=== PATIENT | male | born 1980 | race Caucasian/White ===

== ENCOUNTER 2023-03-25 23:22 | Inpatient (IN) ==
[2023-03-26 00:33] LABS: Appearance Urine Turbid (Clear); Blood Urine 3+ (Negative); Color Urine Orange; Epithelial Cell Urine Auto 0-5 /lpf (0-5); Glucose Urine UA Negative (Negative); Ketones Urine Trace (Negative); Leukocyte Esterase Urine 1+ (Negative); Nitrite Urine Positive (Negative); Protein Urine 2+ (Negative); Specific Gravity Urine 1.034 (1.000-1.030); Urobilinogen Urine Negative (Negative)
[2023-03-26 00:35] LABS: Bilirubin Urine 1+ (Negative)
[2023-03-26 01:03] LABS: RBC Urine Automated >30 /hpf (0-4)
[2023-03-26 01:04] LABS: Bacteria Urine Automated 2+ (Negative); Cast Urine Automated 0 /lpf (0-5)
[2023-03-26 01:05] LABS: Calcium Oxalate Crystals Urine Present (None Prsent)
--- NOTE | 2023-03-26 01:31 | CT Scan Report ---
Exam(s): CT ABDOMEN + PELVIS Without Contrast EXAM: CT Abdomen and Pelvis Without Intravenous Contrast CLINICAL HISTORY: Reason for exam: right flank pain. TECHNIQUE: Axial computed tomography images of the abdomen and pelvis without intravenous contrast. Automated exposure control was utilized for the study. A dose lowering technique was utilized adhering to the principles of ALARA. COMPARISON: None FINDINGS: Lung bases: Unremarkable. No mass. No consolidation. ABDOMEN: Liver: Unremarkable. Gallbladder and bile ducts: Contracted gallbladder. No calcified stones. No ductal dilation. Pancreas: Unremarkable. No ductal dilation. Spleen: Unremarkable. No splenomegaly. Adrenals: Unremarkable. No mass. Kidneys and ureters: 4 mm stone in the proximal right ureter. Mild right hydroureteronephrosis. No hydronephrosis or stone on the left. Stomach and bowel: Moderate stool in the colon. No small bowel obstruction. No mucosal thickening. PELVIS: Appendix: Normal appendix. Bladder: Decompressed bladder limits evaluation. No stones. Reproductive: Unremarkable as visualized. ABDOMEN and PELVIS: Intraperitoneal space: Unremarkable. No free air. No significant fluid collection. Bones/joints: No acute fracture. No dislocation. Soft tissues: Tiny fat-containing umbilical hernia. Vasculature: Phleboliths in the pelvis. No abdominal aortic aneurysm. Lymph nodes: Unremarkable. No enlarged lymph nodes. IMPRESSION: 4 mm stone in the proximal right ureter. Mild right hydroureteronephrosis. Electronically signed by: Letty Herrera M.D. 03/26/23 01:30 AM
[2023-03-26] MEDS ORDERED: oxyCODONE/ACETAMINOPHEN 5mg/325mg TAB PO STA (01:48)
[2023-03-26 03:01] LABS: Basophils # (auto) 0.07 K/uL (0.00-0.20); Eosinophils % (auto) 7.2 %; Hematocrit (blood only) 44.8 % (42.0-52.0); Hemoglobin 15.3 g/dl (14.0-18.0); Immature Granulocytes # (auto) 0.02 K/uL (0.01-0.20); Immature Granulocytes % (auto) 0.3 %; Lymphocytes # (auto) 1.24 K/uL (1.20-3.40); Lymphocytes % (auto) 17.9 %; Mean Corpuscular Hemoglobin 27.8 pg (25.0-34.0); Mean Corpuscular Hgb Conc 34.2 g/dL (32.0-36.0); Mean Corpuscular Volume 81.5 fL (80.0-100.0); Mean Platelet Volume 9.4 fL (9.4-12.4); Monocytes # (auto) 0.37 K/uL (0.11-0.59); Monocytes % (auto) 5.4 %; Neutrophils # (auto) 4.71 K/uL (1.40-6.50); Neutrophils % (auto) 68.2 %; Platelet Count 293 K/uL (130-400); RDW Coefficient of Variation 11.6 % (11.5-14.5); White Blood Count 6.91 K/ul (4.8-10.8)
[2023-03-26] MEDS ORDERED: ONDANSETRON INJ 2 MG/ML 2 ML VIAL IV STA (03:01)
[2023-03-26] MEDS ORDERED: CEFEPIME 2,000 MG/20 ML VIAL IV STA (03:04)
[2023-03-26] MEDS: SODIUM CHLORIDE 0.9% 1,000 ML IV SCH ×3 (03:16→19:03)
[2023-03-26 03:19] LABS: Albumin Globulin Ratio 1.6 (0.9-2); Albumin Level 5.2 gm/dl (3.4-5.0); BUN Creatinine Ratio 15.3 (10-20); Bilirubin,Total 0.4 mg/dl (0.2-1.0); Calcium 9.8 mg/dl (8.6-10.3); Creatinine Clr Calc Pharmacy 83.2 ml/min; Est GFR (African American) 95.1 ml/min; Globulin 3.2 gm/dl (2.5-4.0); Potassium 3.7 mmol/L (3.5-5.1); Total Protein 8.4 gm/dl (6.0-8.3)
[2023-03-26] MEDS ORDERED: TAMSULOSIN HCL 0.4 MG CAP PO ONE (04:22)
[2023-03-26] MEDS ORDERED: MoRPHine SULFATE 4 MG/ML 1 ML CARP\\VIAL IV STA (04:33)
[2023-03-26] MEDS ORDERED: D5W AND NSS 1,000 ML IV ONE (04:34)
--- NOTE | 2023-03-26 04:47 | Emergency Department Note ---
Impression & Plan Hydronephrosis with renal and ureteral calculus obstruction, Acute UTI Admit to the [facility] ED Provider Note NAME: WERO WELLS AGE: 42 SEX: Male INFORMANT: Patient ED PROVIDER(S): Daly Harris DO CHIEF COMPLAINT: Right flank pain PLAN: Disposition: Admit to the [facility] MEDICAL DECISION MAKING: This is a 42-year-old male patient presents emergency department with worsening right flank pain, nausea and chills. Patient has a proximal right ureteral stone with evidence of urinary tract infection. He complains of moderate right flank pain, nausea and chills. He has history of previous stones. He is afebrile with no leukocytosis. Blood cultures were obtained. He was treated with IV cefepime. Patient was a very difficult IV stick as he has a history of remote IV drug abuse. He originally received oral Percocet before an IV lock to be established. He was then given IV normal saline solution and IV Zofran to control his nausea. Care/management discussed with: adoption manager and the [facility] Triage Nursing notes: Reviewed and agree with them. Vital Signs: reviewed and unremarkable Additional History obtained from: Patient and his significant other who is at the bedside Chronic Medical/Social Conditions affecting care: Previous IV drug user. This made it quite difficult to obtain IV access Differential Diagnosis: Pyelonephritis, obstructive uropathy, ureteral calculi, infected kidney stone Diagnostics, independently interpreted by me: Cardiac Monitoring: Normal sinus rhythm at a rate of 76 Imaging studies: CT scan of the abdomen/pelvis: As per stat rad HPI: 42 year old Male arrives for evaluation of right flank pain. Patient describes having intermittent episodes of right flank pain over the past couple of days but became significantly nauseated and had chills and sweats. PAST MEDICAL HISTORY: Previous kidney stones, previous testicular torsion SOCIAL HISTORY: Patient lives with his significant other and no longer abuses drugs. HOME MEDICATIONS: See list ALLERGIES: Ibuprofen VITALS: See Below PHYSICAL EXAMINATION: HEENT: Head - normocephalic and atraumatic. Pupils are equal, round, and reactive to light. Extraocular eye muscles are intact, and sclera are anicteric. Nose - moist nasal mucosa without discharge. Mouth - moist buccal mucosa. Oropharynx is nonerythematous and there is no tonsillar exudate or edema noted. Neck: Supple; no cervical lymphadenopathy Heart: Regular rate and rhythm. There is a normal S1 and S2 with no murmurs, clicks, or gallops appreciated. Lungs: Clear to auscultation bilaterally with no wheezes, rales, or rhonchi. Abdomen: Soft, mild right mid abdomen and right flank pain with palpation. The rest of the abdomen is nondistended, with good bowel sounds. There are no palpable pulsatile masses or hepatosplenomegaly. There is no guarding, rigidity, or rebound noted. Extremities: No evidence of cyanosis, clubbing, or edema. There are easily palpable peripheral pulses. Skin: warm and dry with good turgor and no rashes. Emergency department treatment: P.o. Percocet; IV normal saline bolus; IV Zofran; IV cefepime Patient was evaluated in room B3. A complete history and physical was performed. Nursing staff had difficulty obtaining IV access on this patient. He went for CT scan of the abdomen/pelvis. A urine specimen was obtained. He was given oral Percocet for his pain. IV team attempted IV access and were unsuccessful. Finally, emergency department nursing staff were able to obtain IV access and laboratory studies. I reviewed results of the labs and CT scan with the patient and his significant other. He was given dose of IV cefepime and a dose of IV Zofran. I discussed the case with the [facility] Hospitalist and they will evaluate for further inpatient care. Past Med/Surg History Social History Smoking Status: Current every day smoker Tobacco Type: E-cigarettes / Vaping Preferred Language: Tajik Feels Safe at Home: Yes Allergies Allergies Allergy/AdvReac Type Severity Reaction Status Date / Time ibuprofen Allergy Intermediate CONGESTION, Verified 03/26/23 01:04 EARS "PLUG" UP Home Meds Home Medications Medication Instructions Recorded Confirmed cetirizine 5 mg-pseudoephedrine ER 1 tab PO DAILY 03/26/23 03/26/23 120 mg tablet,extended release,12hr (Zyrtec-D) Results & Data (ED) Vital Signs Vital Signs - 24 hr 03/25/23 23:30 03/26/23 00:39 03/26/23 01:56 Temperature 36.4 C L Temperature Source Oral Pulse Rate 73 Pulse Rate [Finger] 77 75 Respiratory Rate 18 17 17 Respiratory Effort / Characteristics Non-Labored Spontaneous Respiratory Depth Normal Respiratory Pattern Regular Blood Pressure 149/95 H Blood Pressure [Right Arm] 131/84 Blood Pressure Mean 113 Blood Pressure Mean [Right Arm] 99 Blood Pressure Position Sitting Pulse Oximetry 100 98 96 Oxygen Delivery Method Room Air Sepsis Recent Fever Within 48 Hours No Sepsis New/Unexplained Change in Mental Status N/A Sepsis Action Taken by Nursing No Action Required 03/26/23 03:20 03/26/23 05:29 Temperature Temperature Source Pulse Rate Pulse Rate [Finger] 75 73 Respiratory Rate 14 18 Respiratory Effort / Characteristics Respiratory Depth Respiratory Pattern Blood Pressure Blood Pressure [Right Arm] 114/75 126/83 Blood Pressure Mean Blood Pressure Mean [Right Arm] 88 97 Blood Pressure Position Pulse Oximetry 98 98 Oxygen Delivery Method Sepsis Recent Fever Within 48 Hours Sepsis New/Unexplained Change in Mental Status Sepsis Action Taken by Nursing Laboratory Data 03/26/23 02:40 03/26/23 02:40 Lab Results 03/26/23 03/26/23 Range/Units 00:18 02:40 WBC 6.91 (4.8-10.8) K/ul RBC 5.50 (4.70-6.10) M/uL Hgb 15.3 (14.0-18.0) g/dl Hct 44.8 (42.0-52.0) % MCV 81.5 (80.0-100.0) fL MCH 27.8 (25.0-34.0) pg MCHC 34.2 (32.0-36.0) g/dL RDW Std Deviation 34.0 L (36.4-46.3) fL RDW Coeff of Christiano 11.6 (11.5-14.5) % Plt Count 293 (130-400) K/uL MPV 9.4 (9.4-12.4) fL Immature Gran % (Auto) 0.3 % Neut % (Auto) 68.2 % Lymph % (Auto) 17.9 % [place] % (Auto) 5.4 % Eos % (Auto) 7.2 % Baso % (Auto) 1.0 % Neut # (Auto) 4.71 (1.40-6.50) K/uL Lymph # (Auto) 1.24 (1.20-3.40) K/uL [place] # (Auto) 0.37 (0.11-0.59) K/uL Eos # (Auto) 0.50 (0.00-0.50) K/uL Baso # (Auto) 0.07 (0.00-0.20) K/uL Immature Gran # (Auto) 0.02 (0.01-0.20) K/uL Sodium 139 (136-145) mmol/L Potassium 3.7 (3.5-5.1) mmol/L Chloride 99 (98-107) mmol/L Carbon Dioxide 32 (21-32) mmol/L Anion Gap 8 (3-11) BUN 17 (6-23) mg/dl Creatinine 1.11 (0.6-1.4) mg/dl Est Cr Clr Drug Dosing 83.2 ml/min Est GFR ( Amer) 95.1 ml/min Est GFR (Non-Af Amer) 82.0 ml/min BUN/Creatinine Ratio 15.3 (10-20) Glucose 80 (70-99(Fasting)) mg/dl Calcium 9.8 (8.6-10.3) mg/dl Total Bilirubin 0.4 (0.2-1.0) mg/dl AST 23 (13-39) U/L ALT 28 (7-52) U/L Alkaline Phosphatase 86 (34-104) U/L Total Protein 8.4 H (6.0-8.3) gm/dl Albumin 5.2 H (3.4-5.0) gm/dl Globulin 3.2 (2.5-4.0) gm/dl Albumin/Globulin Ratio 1.6 (0.9-2) Urine Color [place] Urine Appearance Turbid A (Clear) Urine pH 5.0 (4.5-7.5) Ur Specific [place] 1.034 H (1.000-1.030) Urine Protein 2+ H (Negative) Urine Glucose (UA) Negative (Negative) Urine Ketones Trace H (Negative) Urine Blood 3+ H (Negative) Urine Nitrite Positive A (Negative) Urine Bilirubin 1+ H (Negative) Urine Urobilinogen Negative (Negative) Ur Leukocyte Esterase 1+ H (Negative) Urine WBC (Auto) 5-10 H (0-5) /hpf Urine RBC (Auto) >30 H (0-4) /hpf U Hyaline Cast (Auto) 0 (0-5) /lpf U Epithel Cells (Auto) 0-5 (0-5) /lpf Urine Bacteria (Auto) 2+ H (Negative) Calcium Oxalate Crystal Present A (None Prsent) Administered Medications Dextrose/Sodium Chloride (D5w And Nss) 1,000 mls @ 80 mls/hr IV .[id number] ONE Stop: 03/26/23 17:03 Last Admin: 03/26/23 04:40 Dose: 80 mls/hr Documented By: FERNANDO Discontinued Medications Sodium Chloride (Nss) 1,000 mls @ 999 mls/hr IV .[id number] SATNLEY Stop: 03/26/23 05:15 Last Infusion: 03/26/23 05:54 Dose: Infused Documented By: Admin: 03/26/23 04:40 Dose: 999 mls/hr Documented By: Infusion: 03/26/23 04:17 Dose: Infused Documented By: Admin: 03/26/23 03:16 Dose: 999 mls/hr Documented By: FERNANDO Cefepime HCl (Maxipime) 2,000 mg in 20 mls @ 5 mls/min IV NOW STA; Protocol Stop: 03/26/23 03:07 Last Admin: 03/26/23 03:16 Dose: 5 mls/min Documented By: FERNANDO Morphine Sulfate (Morphine Sulfate 4 Mg/Ml 1 Ml Carp\\Vial) 4 mg IV NOW STA Stop: 03/26/23 04:34 Last Admin: 03/26/23 04:40 Dose: 4 mg Documented By: FERNANDO Ondansetron HCl (Ondansetron Inj 2 Mg/Ml 2 Ml Vial) 4 mg IV NOW STA Stop: 03/26/23 03:02 Last Admin: 03/26/23 03:16 Dose: 4 mg Documented By: FERNANDO Oxycodone/Acetaminophen (Oxycodone/Acetaminophen 5mg/325mg Tab) 1 tab PO NOW STA Stop: 03/26/23 01:49 Last Admin: 03/26/23 01:55 Dose: 1 tab Documented By: FERNANDO Tamsulosin HCl (Tamsulosin Hcl 0.4 Mg Cap) 0.4 mg PO NOW ONE Stop: 03/26/23 04:23 Last Admin: 03/26/23 04:40 Dose: 0.4 mg Documented By: FERNANDO Imaging Data Radiologist's Impression: Abdomen/Pelvis CT 03/25/23 23:55 Exam(s): CT ABDOMEN + PELVIS Without Contrast EXAM: CT Abdomen and Pelvis Without Intravenous Contrast CLINICAL HISTORY: Reason for exam: right flank pain. TECHNIQUE: Axial computed tomography images of the abdomen and pelvis without intravenous contrast. Automated exposure control was utilized for the study. A dose lowering technique was utilized adhering to the principles of ALARA. COMPARISON: None FINDINGS: Lung bases: Unremarkable. No mass. No consolidation. ABDOMEN: Liver: Unremarkable. Gallbladder and bile ducts: Contracted gallbladder. No calcified stones. No ductal dilation. Pancreas: Unremarkable. No ductal dilation. Spleen: Unremarkable. No splenomegaly. Adrenals: Unremarkable. No mass. Kidneys and ureters: 4 mm stone in the proximal right ureter. Mild right hydroureteronephrosis. No hydronephrosis or stone on the left. Stomach and bowel: Moderate stool in the colon. No small bowel obstruction. No mucosal thickening. PELVIS: Appendix: Normal appendix. Bladder: Decompressed bladder limits evaluation. No stones. Reproductive: Unremarkable as visualized. ABDOMEN and PELVIS: Intraperitoneal space: Unremarkable. No free air. No significant fluid collection. Bones/joints: No acute fracture. No dislocation. Soft tissues: Tiny fat-containing umbilical hernia. Vasculature: Phleboliths in the pelvis. No abdominal aortic aneurysm. Lymph nodes: Unremarkable. No enlarged lymph nodes. IMPRESSION: 4 mm stone in the proximal right ureter. Mild right hydroureteronephrosis. Electronically signed by: Letty Herrera M.D. 03/26/23 01:30 AM Discharge Plan Visit Data Chief Complaint: Flank Pain Stated Complaint: LOW BACK AND ABD PAIN, BLOODY URINE ED Provider: Daly Harris Discharge Problem: Hydronephrosis with renal and ureteral calculus obstruction, Acute UTI Forms Stand Alone Forms: [facility] [email or web address] Prescriptions Prescriptions: No Action cetirizine-pseudoephedrine [Zyrtec-D] 5-120 mg Tablet Extended Release 12 Hr 1 tab PO DAILY Referrals Referrals: PCP,NO [Primary Care Provider] -
--- NOTE | 2023-03-26 04:49 | History & Physical Report ---
Date of Service March 26, 2023 Assessment & Plan (1) Complicated UTI (urinary tract infection): Plan: Secondary to obstructive uropathy No sepsis for now Intermittent scrotal pain since last year Past history testicular torsion HCV status post Rx Past tobacco use GMF Urine CS, Ceftriaxone Flomax Strain urine Scrotal ultrasound Urology consult Re: Renal colic/obstructive uropathy N.p.o. until patient seen by service in anticipation of procedure DVT prophylaxis. SCDs Re: Hematuria Full code Text document was generated using [employer] voice recognition software. It may contain grammatical or spelling errors. Kindly contact undersigned for clarification of any documentation item in question. History of Present Illness Chief Complaint: Right flank pain Primary Care Provider: None History obtained from patient and records. Medical history significant for HCV sp treatment, urolithiasis, past history of testicular torsion, past tobacco abuse. 1 day history of achy right flank pain associated with hematuria symptoms similar to kidney stone attack. Intermittent scrotal pain unrelated to flank pain since episode of possible testicular torsion March 2022 which led to [facility] evaluation. Patient canceled cystoscopy and bilateral orchiopexy scheduled for August 2022. No fever, no chills, no chest pain, no SOB. IV cefepime administered at the ER. Medical History as above Surgical History : None Family History : DM Personal/Social history : Past tobacco abuse, occasional EtOH intake, construction work Allergies Allergy/AdvReac Type Severity Reaction Status Date / Time ibuprofen Allergy Intermediate CONGESTION, Verified 03/26/23 01:04 EARS "PLUG" UP Home Medications Medication Instructions Recorded Confirmed Type cetirizine 5 mg-pseudoephedrine ER 1 tab PO DAILY 03/26/23 03/26/23 History 120 mg tablet,extended release,12hr (Zyrtec-D) Past Med/Surg History Social History Smoking Status: Current every day smoker Tobacco Type: E-cigarettes / Vaping Hx Alcohol Use: No Hx Substance Use: No Preferred Language: Yi Communication Ability: Effective Pin Sorter And Bagger Required: No Beliefs That Will Affect Care: None Current Living Situation: Significant Other Feels Safe at Home: Yes Assistive Devices: None Review of Systems Review of Systems: As per HPI, all other systems reviewed and negative Physical Exam Physical Exam: GENERAL: Slightly uncomfortable, looks older than stated age, no respiratory distress SKIN: Normal color, warm HEENT: [place] palpebral conjunctivae, no ptosis, dry buccal mucosa NECK : Supple, no tenderness CHEST : CTA, no tenderness HEART : RRR, no obvious murmurs ABDOMEN: Some distention, nontender BACK : Right flank tenderness EXTREMITIES : No LE swelling/tenderness, no other conspicuous deformities noted NEUROLOGIC : Coherent, no facial asymmetry, no other gross focality Results & Data Results & Data Vital Signs (Past 12 Hours) Vital Signs Temp Pulse Pulse Resp BP BP Pulse Ox 03/26/23 03:20 75 14 114/75 98 03/26/23 01:56 75 17 96 03/26/23 00:39 77 17 131/84 98 03/25/23 23:30 36.4 C L 73 18 149/95 H 100 O2 Del Method 03/26/23 03:20 03/26/23 01:56 03/26/23 00:39 03/25/23 23:30 Room Air Laboratory Results Laboratory Results WBC 6.91 K/ul (4.8-10.8) 03/26/23 02:40 RBC 5.50 M/uL (4.70-6.10) 03/26/23 02:40 Hgb 15.3 g/dl (14.0-18.0) 03/26/23 02:40 Hct 44.8 % (42.0-52.0) 03/26/23 02:40 MCV 81.5 fL (80.0-100.0) 03/26/23 02:40 MCH 27.8 pg (25.0-34.0) 03/26/23 02:40 MCHC 34.2 g/dL (32.0-36.0) 03/26/23 02:40 RDW Std Deviation 34.0 fL (36.4-46.3) L 03/26/23 02:40 RDW Coeff of Christiano 11.6 % (11.5-14.5) 03/26/23 02:40 Plt Count 293 K/uL (130-400) 03/26/23 02:40 MPV 9.4 fL (9.4-12.4) 03/26/23 02:40 Immature Gran % (Auto) 0.3 % 03/26/23 02:40 Neut % (Auto) 68.2 % 03/26/23 02:40 Lymph % (Auto) 17.9 % 03/26/23 02:40 [place] % (Auto) 5.4 % 03/26/23 02:40 Eos % (Auto) 7.2 % 03/26/23 02:40 Baso % (Auto) 1.0 % 03/26/23 02:40 Neut # (Auto) 4.71 K/uL (1.40-6.50) 03/26/23 02:40 Lymph # (Auto) 1.24 K/uL (1.20-3.40) 03/26/23 02:40 [place] # (Auto) 0.37 K/uL (0.11-0.59) 03/26/23 02:40 Eos # (Auto) 0.50 K/uL (0.00-0.50) 03/26/23 02:40 Baso # (Auto) 0.07 K/uL (0.00-0.20) 03/26/23 02:40 Immature Gran # (Auto) 0.02 K/uL (0.01-0.20) 03/26/23 02:40 Sodium 139 mmol/L (136-145) 03/26/23 02:40 Potassium 3.7 mmol/L (3.5-5.1) 03/26/23 02:40 Chloride 99 mmol/L (98-107) 03/26/23 02:40 Carbon Dioxide 32 mmol/L (21-32) 03/26/23 02:40 Anion Gap 8 (3-11) 03/26/23 02:40 BUN 17 mg/dl (6-23) 03/26/23 02:40 Creatinine 1.11 mg/dl (0.6-1.4) 03/26/23 02:40 Est Cr Clr Drug Dosing 83.2 ml/min 03/26/23 02:40 Est GFR ( Amer) 95.1 ml/min 03/26/23 02:40 Est GFR (Non-Af Amer) 82.0 ml/min 03/26/23 02:40 BUN/Creatinine Ratio 15.3 (10-20) 03/26/23 02:40 Glucose 80 mg/dl (70-99(Fasting)) 03/26/23 02:40 Calcium 9.8 mg/dl (8.6-10.3) 03/26/23 02:40 Total Bilirubin 0.4 mg/dl (0.2-1.0) 03/26/23 02:40 AST 23 U/L (13-39) 03/26/23 02:40 ALT 28 U/L (7-52) 03/26/23 02:40 Alkaline Phosphatase 86 U/L (34-104) 03/26/23 02:40 Total Protein 8.4 gm/dl (6.0-8.3) H 03/26/23 02:40 Albumin 5.2 gm/dl (3.4-5.0) H 03/26/23 02:40 Globulin 3.2 gm/dl (2.5-4.0) 03/26/23 02:40 Albumin/Globulin Ratio 1.6 (0.9-2) 03/26/23 02:40 Urine Color [place] 03/26/23 00:18 Urine Appearance Turbid (Clear) A 03/26/23 00:18 Urine pH 5.0 (4.5-7.5) 03/26/23 00:18 Ur Specific [place] 1.034 (1.000-1.030) H 03/26/23 00:18 Urine Protein 2+ (Negative) H 03/26/23 00:18 Urine Glucose (UA) Negative (Negative) 03/26/23 00:18 Urine Ketones Trace (Negative) H 03/26/23 00:18 Urine Blood 3+ (Negative) H 03/26/23 00:18 Urine Nitrite Positive (Negative) A 03/26/23 00:18 Urine Bilirubin 1+ (Negative) H 03/26/23 00:18 Urine Urobilinogen Negative (Negative) 03/26/23 00:18 Ur Leukocyte Esterase 1+ (Negative) H 03/26/23 00:18 Urine WBC (Auto) 5-10 /hpf (0-5) H 03/26/23 00:18 Urine RBC (Auto) >30 /hpf (0-4) H 03/26/23 00:18 U Hyaline Cast (Auto) 0 /lpf (0-5) 03/26/23 00:18 U Epithel Cells (Auto) 0-5 /lpf (0-5) 03/26/23 00:18 Urine Bacteria (Auto) 2+ (Negative) H 03/26/23 00:18 Calcium Oxalate Crystal Present (None Prsent) A 03/26/23 00:18 Impressions Abdomen/Pelvis CT 03/25/23 23:55 Exam(s): CT ABDOMEN + PELVIS Without Contrast EXAM: CT Abdomen and Pelvis Without Intravenous Contrast CLINICAL HISTORY: Reason for exam: right flank pain. TECHNIQUE: Axial computed tomography images of the abdomen and pelvis without intravenous contrast. Automated exposure control was utilized for the study. A dose lowering technique was utilized adhering to the principles of ALARA. COMPARISON: None FINDINGS: Lung bases: Unremarkable. No mass. No consolidation. ABDOMEN: Liver: Unremarkable. Gallbladder and bile ducts: Contracted gallbladder. No calcified stones. No ductal dilation. Pancreas: Unremarkable. No ductal dilation. Spleen: Unremarkable. No splenomegaly. Adrenals: Unremarkable. No mass. Kidneys and ureters: 4 mm stone in the proximal right ureter. Mild right hydroureteronephrosis. No hydronephrosis or stone on the left. Stomach and bowel: Moderate stool in the colon. No small bowel obstruction. No mucosal thickening. PELVIS: Appendix: Normal appendix. Bladder: Decompressed bladder limits evaluation. No stones. Reproductive: Unremarkable as visualized. ABDOMEN and PELVIS: Intraperitoneal space: Unremarkable. No free air. No significant fluid collection. Bones/joints: No acute fracture. No dislocation. Soft tissues: Tiny fat-containing umbilical hernia. Vasculature: Phleboliths in the pelvis. No abdominal aortic aneurysm. Lymph nodes: Unremarkable. No enlarged lymph nodes. IMPRESSION: 4 mm stone in the proximal right ureter. Mild right hydroureteronephrosis. Electronically signed by: Letty Herrera M.D. 03/26/23 01:30 AM
[2023-03-26] MEDS ORDERED: ACETAMINOPHEN 325 MG TAB PO PRN (04:51)
[2023-03-26] MEDS ORDERED: PROMETHAZINE HCL 6.25 MG in SODIUM CHLORIDE 0.9% 50 ML IV PRN (04:51)
--- OUTSIDE RECORDS SUMMARY | 2023-03-26 07:01 | External Medical Summary | Summary of Care ---
Author Name Unknown Organization [facility] Address [address] [facility] [place] [address] Phone [phone] Care Team Providers Care Technology Resource Teacher Name Role Phone Calreen Douglas DO Primary Care Provider + Reason for Visit * Reason Comments Cold Symptoms Encounter Details Date Type Department Care Team (Latest Contact Info) Description 02/18/2023 8:20 PM EDT [facility] [place] [address] [place] [id number] Rand Ibrahim PA-C [address] [place] [id number] Upper respiratory tract infection, unspecified type* Allergies Active Allergy Reactions Criticality Noted Date Comments Ibuprofen 01/29/2022 Sneezing, documented as of this encounter (statuses as of 02/18/2023) Medications Medication Sig Dispensed Refills Start Date End Date Status Tamsulosin HCl 0.4 MG Oral Capsule (Flomax)Indications: Chronic pelvic pain in male Take 1 Capsule by mouth in the morning. 30 Capsule 0 09/25/2022 Active Co Q-10 100 MG Oral Capsule Take 1 Capsule by mouth every evening. Pt unsure of dosage 0 Active Tadalafil 5 MG Oral Tablet (Cialis) Take 1 Tablet by mouth daily as needed for Erectile Dysfunction. 90 Tablet 3 09/16/2022 Active documented as of this encounter (statuses as of 02/18/2023) Active Problems Problem Noted Date Diagnosed Date Pain in or around eye 08/13/2010 CHRONIC HEPATITIS C W/O MENTION OF HEPATIC COMA 08/14/2005 documented as of this encounter (statuses as of 02/18/2023) Immunizations Name Administration Dates Next Due HepA Inact/HepB Recomb>=18yrs old 08/28/2005, TD, Preservative Free 08/18/2003 TDAP (age 10 and older)(Boostrix) 03/01/2013 documented as of this encounter Social History Tobacco Use Types Packs/Day Years Used Date Smoking Tobacco: Former Cigarettes 1 8 Smokeless Tobacco: Current Chew Comments:Once or twice daily Alcohol Use Standard Drinks/Week Comments Not Currently 0 (1 standard drink = 0.6 oz pur e alcohol) occasional Sex and Gender Information Value Date Recorded Sex Assigned at Male 09/16/2022 8:49 AM EDT Gender Identity Male 09/16/2022 8:49 AM EDT Sexual Orientation Straight 09/16/2022 8: 49 AM EDT Job Start Date Occupation Industry Not on file Not on file Not on file documented as of this encounter Last Filed Vital Signs Vital Sign Reading Time Taken Comments Blood Pressure 108/70 02/18/2023 7:33 PM EDT Pulse 83 02/18/2023 7:33 PM EDT Temperature 36.3 C (97.4 F) 02/18/2023 7:33 PM ED T Respiratory Rate 18 02/18/2023 7:33 PM EDT Oxygen Saturation 100% 02/18/2023 7:33 PM EDT Inhaled Oxygen Concentration - - Weight 66.3 kg (146 lb 3.2 oz) 02/18/2023 7:33 P M EDT Height - - Body Mass Index 22.23 08/27/2022 11:39 AM EDT documented in this encounter Patient Instructions * Patient Instructions* Rand Ibrahim PA-C - 02/18/2023 7:38 PM EDT What is an Upper Respiratory Infection URI)? An upper respiratory Infections (URI) is also known as the common cold or nasopharyngitis. The mostcommon cause of a URI is a virus. These viruses tend to circulate more in the winter season and arespread by person to person contact. There are no vaccinations against the common viruses that causeURIs. There are no antibiotic drugs that help treat a URI. The most effective method for avoiding Kumar is hand washing and avoidance of close contact with people who are sick. When You Have an Upper Respiratory Infection Your upper airways (nose, throat, bronchi) are usually reacting to a viral infection. The main response of your body to the infection is called "inflammation", and this results in secretion of mucus and irritation of the airways. Your body's response may be to cough and/or sneeze. This can help clear out the fluid and the infection. Dark nasal mucous does not mean that you have a bacterial infection What Are the Symptoms? Symptoms of Upper Respiratory Infection can come without warning. At first, it may start off as a sore throat, nasal congestion, sneezing, or mild cough. Typically, there are general symptoms as wellsuch as fever, body aches, and fatigue. Often no one symptom is prominent. Common symptoms include the following: Mild Cough, sometimes productive of phlegm Nasal congestion and sneezing Ear congestion and pain Throat pain Fever and chills Muscle aches and fatigue Possible Tests An upper respiratory infection is diagnosed based on an accurate history and physical examination. Additional tests are not required. Treatments The types and combinations of treatments are typically based on the symptoms that are bothering you. " Cough syrup to suppress coughing " Decongestants for ear, nose, and chest congestion " Antihistamines for runny nose " Throat lozenges for sore throat " Acetaminophen or non-steroidal antiinflamatory drugs (such as ibuprofen) for fever and body aches When to Call or Return for Evaluation It's common that patients require a couple of days to a couple of weeks to fully recover from a URI. Signs that should lead you to call or visit your doctor sooner include: " New or persistent fever " Increasing shortness of breath at rest or with minimal exertion " Increasing fatigue or weakness " Changes in your thinking or confusion " Cough persisting beyond 1-2 weeks To Prevent Future Infections Avoid tobacco smoke. If you smoke, quit. Stay away from smoky places. Ask friends and family not tosmoke around you, or in your home or car. Make sure that any allergies are treated. Ask your healthcare provider about getting a yearly flu shot and a pneumococcal vaccination. This vaccine protects against certain severe forms of pneumonia, but will not protect against all pneumonia. Wash hands often. This helps reduce the chance of picking up viruses that cause colds and flu. documented in this encounter Progress Notes * Rand Ibraihm PA-C - 02/18/2023 7:35 PM EDT Subjective: Apolinar Prado is a 42 year old male. Chief Complaint Patient presents with Cold Symptoms HPI: 42 yo male presents c/o h/a, congestion, rhinorrhea, sore throat, cough that just happened this morning. He took some zyrtec and used nasal spray OTC that did not help. No fever, chills, sweats,body aches, cp, sob, wheezing, abd pain, n/v/d. PMH: Patient Active Problem List Diagnosis Code CHRONIC HEPATITIS C W/O MENTION OF HEPATIC COMA B18.2 Pain in or around eye H57.10 Current Outpatient Medications Medication Sig Dispense Refill Tamsulosin HCl 0.4 MG Oral Capsule (Flomax) Take 1 Capsule by mouth in the morning. 30 Capsule 0 Co Q-10 100 MG Oral Capsule Take 1 Capsule by mouth every evening. Pt unsure of dosage Tadalafil 5 MG Oral Tablet (Cialis) Take 1 Tablet by mouth daily as needed for Erectile Dysfunction. 90 Tablet 3 No current facility-administered medications for this visit. Past Medical History: Diagnosis Date NONE Past Surgical History: Procedure Laterality Date NONE Review of patient's allergies indicates: Allergen Reactions Ibuprofen Sneezing, Family History Problem Relation Age of Onset Hypertension Grandmother (Maternal) Heart Disorder Grandfather (Maternal) Asthma Grandmother (Paternal) Family Status Relation Status MGMA (Not Specified) MGFA (Not Specified) PGMA (Not Specified) Social History Socioeconomic History Marital status: Significant Other Spouse name: Not on file Number of children: Not on file Years of education: Not on file Highest education level: Not on file Occupational History Not on file Tobacco Use Smoking status: Former Packs/day: 1.00 Years: 8.00 Additional pack years: 0.00 Total pack years: 8.00 Types: Cigarettes Smokeless tobacco: Current Types: Chew Tobacco comments: Once or twice daily Vaping Use Vaping Use: Every day Substances: Nicotine Devices: Refillable tank Substance and Sexual Activity Alcohol use: Not Currently Comment: occasional Drug use: No Sexual activity: Yes Partners: Female Other Topics Concern Not on file Social History Narrative Not on file Social Determinants of Health Financial Resource Strain: Not on file Food Insecurity: Not on file Transportation Needs: Not on file Physical Activity: Not on file Stress: Not on file Social Connections: Not on file Intimate Partner Violence: Not on file Housing Stability: Not on file Review of Systems All other systems reviewed and are negative. Objective: BP 108/70 | Pulse 83 | Temp 36.3 C (97.4 F) | Resp 18 | Wt 66.3 kg (146 lb 3.2 oz) | SpO2 100% | BMI 22.23 kg/m | BSA 1.78 m Physical Exam Vitals and nursing note reviewed. Constitutional: General: He is not in acute distress. Appearance: Normal appearance. He is normal weight. HENT: Head: Normocephalic and atraumatic. Right Ear: Tympanic membrane, ear canal and external ear normal. Left Ear: Tympanic membrane, ear canal and external ear normal. Nose: Congestion present. Mouth/Throat: Mouth: Mucous membranes are moist. Pharynx: Posterior oropharyngeal erythema present. No oropharyngeal exudate. Eyes: Extraocular Movements: Extraocular movements intact. Conjunctiva/sclera: Conjunctivae normal. Pupils: Pupils are equal, round, and reactive to light. Cardiovascular: Rate and Rhythm: Normal rate. Heart sounds: Normal heart sounds. No murmur heard. No friction rub. No gallop. Pulmonary: Effort: Pulmonary effort is normal. Breath sounds: Normal breath sounds. Abdominal: General: Abdomen is flat. Bowel sounds are normal. Palpations: Abdomen is soft. There is no hepatomegaly, splenomegaly or mass. Tenderness: There is no abdominal tenderness. Musculoskeletal: Cervical back: Neck supple. Skin: General: Skin is warm and dry. Findings: No rash. Neurological: General: No focal deficit present. Mental Status: He is alert and oriented to person, place, and time. ASSESSMENT: Upper respiratory tract infection, unspecified type (Primary) Refer to pt handout for further instructions. Rand Ibrahim PA-C documented in this encounter Plan of Treatment Health Maintenance Due Date Last Done Comments Lipid Panel 1981 COVID-19 Vaccine (#1) 01/13/1982 Depression Screening 1993 HIV Screening 1996 Hepatitis B (3 of 4 - Hep B Twinrix 4-dose series) 09/11/2005 08/28/2005, 08/14/2005 Influenza Vaccine (FLU shot) (#1) 2022 DTaP,Tdap,and Td Vaccines (2 - Td or Tdap) 03/01/2023 03/01/2013, 08/18/2003 GARDASIL-HPV IMMUNIZATION SERIES Aged Out No longer eligible b ased on patient's age to complete this topic MENINGOCOCCAL (MENACTRA/MENVEO) Aged Out No longer eligible b ased on patient's age to complete this topic Pneumococcal Vaccine: Pediatrics (0 to 5 Years) and At-Risk Patients (6 to 64 Years) Aged Out No longer eligible b ased on patient's age to complete this topic documented as of this encounter Medical Devices Not on filedocumented as of this encounter Visit Diagnoses Diagnosis Upper respiratory tract infection, unspecified type- Primary documented in this encounter Care Teams Technology Resource Teacher Relationship Specialty Start Date End Date Carleen Douglas DO [address], [place] [id number] PCP - General Family Medicine 01/29/22 documented as of this encounter
--- NOTE | 2023-03-26 07:10 | Ultrasound Report ---
US scrotum/testicle CLINICAL HISTORY: 42 years-old Male with pain, hx testicular torsion. Acute scrotal pain COMPARISON STUDY: CT of same day TECHNIQUE: Real-time, grayscale, and color Doppler sonography of the testes and scrotum is performed. Images are reviewed in the transverse and longitudinal planes. FINDINGS: RIGHT HEMISCROTUM: The right testis measures 5.0 x 2.4 x 3.3 cm and the parenchyma appears unremarkab le. No intratesticular mass is seen. Normal-appearing arterial inflow is present within the right vu ticle. 2 mm right epididymal head cyst. No varicocele. Trace complex hydrocele. Probable testicular m icrolithiasis. LEFT HEMISCROTUM: The left testis measures 5.0 x 2.5 x 2.8 cm and the parenchyma appears unremarkable . No intratesticular mass is seen. Normal-appearing arterial inflow is present within the left testic le. The left epididymal head appears normal. No varicocele. Trace complex hydrocele. Probable testicu lar microlithiasis. IMPRESSION: 1. No testicular torsion or mass. 2. Trace complex hydroceles. 3. Testicular microlithiasis. ACT 112: Negative or not required by law. The above report was generated using voice recognition software. It may contain grammatical, syntax o r spelling errors. Electronically signed by: Chirag Nowak M.D. 03/26/2023 7:08 AM
--- NOTE | 2023-03-26 08:06 | Urology Consultation ---
<Statement entered by Terrance Donis MD - 03/26/23 14:39> I have discussed Mr. Prado's case with BRANDYN Jackson and agree with the above documentation. He has a ureteral stone and urinalysis is concerning for possible infection. We will plan for cystoscopy, retrograde pyelogram and right ureteral stent placement to allow maximal drainage of the urinary tract. -Terrance Donis MD. Date of Consultation March 26, 2023 Assessment & Plan (1) Hydronephrosis with renal and ureteral calculus obstruction: (2) Complicated UTI (urinary tract infection): Plan 42yo/M admitted with an obstructing right ureteral stone and concern for infection. We reviewed his CT showing an obstructing 4 mm right ureteral stone. We also discussed that his urinalysis is concerning for infection. Given the concern for infection in the setting of an obstructing stone, our recommendation would be for stent placement. We discussed acute stone management with cystoscopy and stent placement. Ureteral stents were discussed as well as postoperative issues and pain management. He is aware a second procedure will be needed for stone treatment after the infection has resolved. Risks and benefits were discussed. He is agreeable to proceeding. All questions were answered. Will plan to proceed to OR today for cystoscopy, right retrograde pyelogram, right ureteral stent placement with Dr. Donis. Risks and benefits discussed as per consent. He is covered preoperatively with scheduled IV Ceftriaxone. Continue supportive care and pain management. Urology will follow. History of Present Illness Attending Physician: Sami Sherman MD History of Present Illness 42-year-old male who presented to the ED with worsening right flank pain, scrotal pain, nausea, and vomiting. On arrival he was afebrile and hemodynamically stable. Labs showing no leukocytosis and normal renal function. Urinalysis concerning for infection with 3+ blood, positive nitrite, 1+ LE, 2+ bacteria. CT abdomen pelvis was obtained and demonstrated a 4mm proximal right ureteral stone with hydronephrosis. Patient did report a history of testicular torsion. A scrotal ultrasound was obtained as well notable for trace complex hydroceles, testicular microlithiasis, no testicular torsion or mass. ED course: Morphine, Zofran, Flomax, cefepime. Admitted to medicine for further management. CT abdomen pelvis- 4 mm stone in the proximal right ureter. Mild right hydroureteronephrosis. Scrotal ultrasound- 1. No testicular torsion or mass. 2. Trace complex hydroceles. 3. Testicular microlithiasis. Patient examined at bedside this AM. Awake, resting in bed on arrival. No acute distress. Had half of a breakfast sandwich around 4:30 AM. Currently denies fevers, chills, nausea, vomiting. Pain has improved with medication. Voiding without issue. Reports hematuria. Patient has followed with [facility] urology in the past. Previously seen for bilateral testicle pain and concern of possible intermittent torsion. He was scheduled to undergo bilateral orchiopexy in August 2022 however he canceled the procedure. He also reports a history of stones however has not required surgical intervention. Allergies Allergy/AdvReac Type Severity Reaction Status Date / Time ibuprofen Allergy Intermediate CONGESTION, Verified 03/26/23 01:04 EARS "PLUG" UP Home Medications Medication Instructions Recorded Confirmed Type cetirizine 5 mg-pseudoephedrine ER 1 tab PO DAILY 03/26/23 03/26/23 History 120 mg tablet,extended release,12hr (Zyrtec-D) Patient History Social History Smoking Status: Current every day smoker Tobacco Type: E-cigarettes / Vaping Hx Alcohol Use: No Hx Substance Use: No Preferred Language: Moldovan Communication Ability: Effective Air Traffic Control Operator Required: No Beliefs That Will Affect Care: None Current Living Situation: Significant Other Feels Safe at Home: Yes Assistive Devices: None Review of Systems Review of Systems: All systems reviewed & are unremarkable except as noted in HPI & below Physical Exam Constitutional: no acute distress Neck: normal visual inspection Respiratory: no respiratory distress and no labored breathing Musculoskeletal: Head/Neck/Chest: normocephalic Skin: No visible rashes or lesions to exposed skin areas Neurologic: moves all extremities and awake Psychiatric: A+Ox3, euthymic affect Results & Data Vital Signs (Past 12 Hours) Vital Signs Temp Pulse Pulse Resp BP BP Pulse Ox 03/26/23 06:35 77 19 98 03/26/23 05:29 73 18 126/83 98 03/26/23 03:20 75 14 114/75 98 03/26/23 01:56 75 17 96 03/26/23 00:39 77 17 131/84 98 03/25/23 23:30 36.4 C L 73 18 149/95 H 100 O2 Del Method 03/26/23 06:35 Room Air 03/26/23 05:29 11/30/23 03:20 03/26/23 01:56 03/26/23 00:39 03/25/23 23:30 Room Air PG Care Time/CCT Total # of Minutes Spent Total Time Spent with Patient: Total time spent is greater than 50% in coordination of care (as documented) at patient's floor/unit and/or counseling patient: Coding Level of Care Code 26895 IN/OBS CONSULT LVL 4,60M Diagnoses Hydronephrosis with renal and ureteral calculus obstruction N13.2 Complicated UTI (urinary tract infection) N39.0
[2023-03-26] MEDS: cefTRIAXone SODIUM 2,000 MG in DEXTROSE 5 % MINI-B 50 ML IV SCH (08:58)
--- NOTE | 2023-03-26 10:30 | Anesthesiology Consultation ---
Date of Service March 26, 2023 Assessment & Plan Chart Review Chart Review: Acceptable Risk for Surgery and Patient NOT seen in Pre Admission Testing Consults Requested none History Surgery Operation Date: 03/26/23 09:15 Proposed Procedures p Cystoscopy, Right Retrograde Pyelogram, Right Stent Placement - Terrance Donis MD Height/Weight Height: 5 ft 8 in Weight: 70 kg Allergies Allergy/AdvReac Type Severity Reaction Status Date / Time ibuprofen Allergy Intermediate CONGESTION, Verified 03/26/23 01:04 EARS "PLUG" UP Medications Home Medications Medication Instructions Recorded Confirmed Last Taken cetirizine 5 mg-pseudoephedrine ER 1 tab PO DAILY 03/26/23 03/26/23 03/25/23 120 mg tablet,extended release,12hr (Zyrtec-D) Active Medications Generic Name Dose Route Start Last Admin Trade Name Freq PRN Reason Stop Dose Admin Dextrose/Sodium Chloride 1,000 mls @ 80 mls/hr 03/26/23 04:34 03/26/23 04:40 D5w And Nss IV 03/26/23 17:03 80 mls/hr .[id number] ONE Administration Ceftriaxone Sodium 2,000 mg/ 50 mls @ 100 mls/hr 03/26/23 09:00 03/26/23 09:29 Dextrose IV 04/05/23 08:59 Infused DAILY STANLEY Infusion Protocol Social History Smoking Status: Current every day smoker Hx Alcohol Use: No Hx Substance Use: No substance use type: former substance user Physical Exam Vital Signs Last Vital Signs Temp 37 C 03/26/23 09:05 Pulse 76 03/26/23 09:05 Resp 20 03/26/23 09:05 BP 132/98 03/26/23 09:05 Pulse Ox 99 03/26/23 09:05 O2 Del Method Room Air 03/26/23 09:05 Testing Laboratory Results 03/26/23 02:40 03/26/23 02:40 Urine Color [place] 03/26/23 00:18 Urine Appearance Turbid (Clear) A 03/26/23 00:18 Urine pH 5.0 (4.5-7.5) 03/26/23 00:18 Ur Specific [place] 1.034 (1.000-1.030) H 03/26/23 00:18 Urine Protein 2+ (Negative) H 03/26/23 00:18 Urine Glucose (UA) Negative (Negative) 03/26/23 00:18 Urine Ketones Trace (Negative) H 03/26/23 00:18 Urine Nitrite Positive (Negative) A 03/26/23 00:18 Ur Leukocyte Esterase 1+ (Negative) H 03/26/23 00:18 Urine WBC (Auto) 5-10 /hpf (0-5) H 03/26/23 00:18 Urine RBC (Auto) >30 /hpf (0-4) H 03/26/23 00:18 U Hyaline Cast (Auto) 0 /lpf (0-5) 03/26/23 00:18 U Epithel Cells (Auto) 0-5 /lpf (0-5) 03/26/23 00:18 Urine Bacteria (Auto) 2+ (Negative) H 03/26/23 00:18
--- NOTE | 2023-03-26 14:00 | Hospitalist Progress Note ---
Date of Service March 26, 2023 Assessment & Plan (1) Complicated UTI (urinary tract infection): Plan 42-year-old male with PMH of HCV status posttreatment, urolithiasis, testicular torsion, tobacco abuse presented to the ED with 1 day history of right flank pain associated with hematuria similar to his prior kidney stone attack. He is being managed for the following: Complicated UTI Obstructive uropathy Patient presents with right flank pain and burning micturition. Admitting CTAP with 4 mm stone in the proximal right ureter with mild hydroureteronephrosis No sepsis POA, await admitting urine culture. No CVA tenderness on exam. Continue with Rocephin 03/26. Urology on board, possible plan for cystoscopy/stent placement today. Continue with IV fluid and pain management, resume diet after the procedure. Abnormal scrotal ultrasound: No torsion but trace complex hydrocele and testicular microlithiasis noted. Urology on board, await recommendation. Will need urology follow-up as an outpatient. DVT prophylaxis: SCD, hematuria Full code Admission and Anticipated Discharge Date Admission Date: March 26, 2023 Subjective Patient was seen and examined at bedside. Patient was lying in bed, sleeping, on room air, NAD, reports no new acute event overnight. Patient is n.p.o. for possible OR for cystoscopy and stent placement per urology. Patient denies febrile illness, headache, dizziness, sore throat, cough, chest pain, palpitation, abdominal pain. Patient reports burning urination since 1 to 2 days. Patient denies any acute changes in his bowel habits. Patient reports right flank pain improving, currently 4/10 at bedside exam. Physical Exam Physical Exam: GENERAL: Alert and oriented x3. NAD, on RA. Appears ill. HEENT: No pallor, no icterus. Pupils equal, round and reactive to light. Oral mucosa moist. NECK: No JVD, no neck masses. HEART: S1 and S2 heard. Regular rate and rhythm. No murmur, no gallop. RESPIRATORY SYSTEM: Normal AP diameter. No accessory muscle use. No wheezing, no crackles. ABDOMEN: Soft, bowel sounds present, nontender, no distention. CENTRAL NERVOUS SYSTEM: No facial droop. Speech is clear. Obeys simple commands. Moves extremities. EXTREMITIES: No edema, no erythema seen. No CVA angle tenderness. Results & Data Results & Data Vital Signs (Past 12 Hours) Vital Signs Temp Pulse Resp BP Pulse Ox O2 Del Method 03/26/23 13:15 73 16 121/76 100 Room Air 03/26/23 09:05 37 C 76 20 132/98 99 Room Air 03/26/23 06:35 77 19 98 Room Air 03/26/23 05:29 73 18 126/83 98 03/26/23 03:20 75 14 114/75 98 03/26/23 01:56 75 17 96
[2023-03-26] MEDS: oxyCODONE HCL IR 5 MG TAB (IMMEDIATE RELEASE) PO PRN (14:11)
[2023-03-26] MEDS ORDERED: LACTATED RINGER'S 1,000 ML IV SCH (15:00)
[2023-03-26] MEDS ORDERED: fentaNYL citrate PF 100 MCG/2 ML VIAL ONE (15:26)
[2023-03-26] MEDS ORDERED: MIDAZOLAM HCL 1 MG/ML 2ML VIAL ONE (15:26)
[2023-03-26] MEDS ORDERED: ePHEDrine sulfate 50 MG/ML AMP IV PRN (16:04)
[2023-03-26] MEDS ORDERED: fentaNYL citrate PF 100 MCG/2 ML VIAL IV PRN (16:04)
[2023-03-26] MEDS ORDERED: ONDANSETRON INJ 2 MG/ML 2 ML VIAL IV PRN (16:04)
[2023-03-26] MEDS ORDERED: NALOXONE HCL 0.4 MG/1 ML VIAL/CARP IV PRN (16:04)
[2023-03-26] MEDS ORDERED: PROMETHAZINE HCL 12.5 MG in SODIUM CHLORIDE 0.9% 50 ML IV PRN (16:04)
[2023-03-26] MEDS ORDERED: LABETALOL HCL IV 5 MG/ML 20ML IV PRN (16:04)
[2023-03-26] MEDS ORDERED: ATROPINE SULFATE 0.1 MG/ML 10ML SYR IV PRN (16:04)
[2023-03-26] MEDS ORDERED: FLUMAZENIL 0.1 MG/1 ML 10 ML VIAL IV PRN (16:04)
[2023-03-26] MEDS ORDERED: ONDANSETRON INJ 2 MG/ML 2 ML VIAL ONE (16:09)
[2023-03-26] MEDS ORDERED: PROPOFOL IV EMULSION 10 MG/ML 20 ML VIAL IV ONE ×2 (16:09→16:26)
[2023-03-26] MEDS ORDERED: LIDOCAINE 2% 2 ML VIAL/AMP(20MG/ML) INFIL ONE (16:09)
[2023-03-26] MEDS ORDERED: KETOROLAC 30 MG/ML VIAL ONE (16:17)
[2023-03-26] MEDS ORDERED: DIATRIZOATE MEGLUMINE 30% 100ML VIAL INSTIL ONE (16:26)
--- NOTE | 2023-03-26 16:35 | Operative Report ---
PG Post Operative Report Pre & Post Diagnosis Operation Date: 03/26/23 09:15 Pre-Op Diagnosis: Hydronephrosis with renal and ureteral calculus obstruction, complicated urinary tract infection Post-Op Diagnosis: Hydronephrosis with renal and ureteral calculus obstruction, complicated urinary tract infection I identified the patient and participated in the time-out.: Yes Procedure Operation Date: 03/26/23 09:15 Actual Procedures p Cystoscopy, Right Retrograde Pyelogram, Right Ureteral Stent Placement(Right) - Terrance Donis MD Surgeon Terrance Donis MD Information Security Systems Instructor None Estimated Blood Loss 0 Findings Consistent with Post-Op Diagnosis Specimens None Drains 6 Lao by 26 cm double-J ureteral stent in the right ureter Anesthesia Type MAC Complications none Disposition Accompanied Patient To Recovery: Yes Disposition: Recovery Room Indications This is a 42-year-old male who presented to the emergency department with flank pain. He was found to have a right ureteral stone and urinalysis was concerning for infection. He is being brought to the OR for right ureteral stent placement to maximally drain the urinary tract. Description of Procedure The patient was identified in the holding area and informed consent was confirmed. He was marked on the right side, then was taken to the operating room where anesthesia was initiated. He was placed in the dorsal lithotomy position with all pressure points appropriately padded. He was prepped and draped in the usual sterile fashion and a preoperative timeout was performed. A well-lubricated cystoscope was inserted per urethra and panendoscopy was performed. The pendulous urethra was normal with no strictures or mucosal abnormalities. The prostate was of normal size. His bladder appeared grossly normal with no tumors or stones appreciated. Ureteral orifices were in orthotopic position bilaterally. A 5 Lao open-ended catheter was inserted and used to intubate the right ureteral orifice. A retrograde pyelogram was performed using Cystografin. There was some dilation of the proximal ureter. No extravasation was appreciated. A sensor wire was advanced up to the kidney under fluoroscopic guidance. Over the wire, a 6 Lao x 26 cm double-J ureteral stent was advanced. When the wire was removed, there was a good curl in the kidney under fluoroscopic guidance. A curl was visualized in the bladder with the cystoscope. There was drainage of slightly turbid urine with some contrast through the stent. At this point the bladder was drained and all instrumentation was removed. The patient was then awakened from anesthesia and was brought to the PACU in stable condition. I attest to the content of the Intraoperative Record and any orders documented therein. Any exceptions are noted below.
--- NOTE | 2023-03-26 17:19 | Anesthesiology Progress Note ---
Date of Service March 26, 2023 Anesthesia Post Procedure Vital Signs Vital Signs: Temp Pulse Pulse Pulse Resp BP BP 03/26/23 17:10 36.3 C L 70 12 115/78 03/26/23 17:05 36.3 C L 66 12 112/79 03/26/23 16:55 67 14 96/72 L 03/26/23 16:45 77 10 L 130/98 03/26/23 16:41 36.1 C L 82 8 L 122/79 03/26/23 15:12 36.7 C 82 20 117/77 03/26/23 14:07 36.4 C L 71 16 03/26/23 13:15 73 16 03/26/23 09:05 37 C 76 20 03/26/23 06:35 77 19 03/26/23 05:29 73 18 03/26/23 03:20 75 14 03/26/23 01:56 75 17 03/26/23 00:39 77 17 03/25/23 23:30 36.4 C L 73 18 149/95 H BP Pulse Ox O2 Del Method O2 Flow Rate 03/26/23 17:10 98 Room Air 03/26/23 17:05 100 Room Air 0 03/26/23 16:55 100 Oxymask 4 03/26/23 16:45 100 Oxymask 6 03/26/23 16:41 100 Oxymask 8 03/26/23 15:12 98 Room Air 03/26/23 14:07 121/81 100 Room Air 03/26/23 13:15 121/76 100 Room Air 03/26/23 09:05 132/98 99 Room Air 03/26/23 06:35 98 Room Air 03/26/23 05:29 126/83 98 03/26/23 03:20 114/75 98 03/26/23 01:56 96 03/26/23 00:39 131/84 98 03/25/23 23:30 100 Room Air Pain Intensity Lower Back: Pain Intensity: 10 Right Flank: Pain Intensity: 7 Transfer of Care Handoff Completed per policy Notes Mental Status: alert / awake / arousable Patient Amnestic to Procedure: Yes Nausea / Vomiting: adequately controlled Pain: adequately controlled Airway Patency, RR, SpO2: stable & adequate BP & HR: stable & adequate Hydration State: stable & adequate Anesthetic Complications: no major complications apparent
--- NOTE | 2023-03-26 17:48 | Fluoroscopy Report ---
INTRAOPERATIVE RADIOGRAPHS CLINICAL HISTORY: Right ureteral stent placement. Fluoro time: 7 seconds Ka,r: 0.90 mGy FINDINGS: 4 spot fluoroscopic views of the right abdomen are correlated with abdominal CT dated 03/26. The initial image shows contrast within the distal right ureter which is normal in caliber. A catheter was advanced to the right renal pelvis. Injected contrast shows at least mild hydronephrosis . The final images show the proximal end of a right ureteral stent in appropriate position. IMPRESSION: Intraoperative images from a right ureteral stent placement procedure as above. Electronically signed by: Jesus Manuel Echevarria M.D. 03/26/2023 5:46 PM
[2023-03-26] MEDS: MoRPHine SULFATE 4 MG/ML 1 ML CARP\\VIAL IV PRN ×2 (18:06→23:03)
[2023-03-26] MEDS: PHENAZOPYRIDINE HCL 200 MG TAB PO PRN (20:28)
[2023-03-27] MEDS: oxyCODONE HCL IR 5 MG TAB (IMMEDIATE RELEASE) PO PRN ×2 (02:25→14:45)
[2023-03-27] MEDS: SODIUM CHLORIDE 0.9% 1,000 ML IV SCH (05:50)
[2023-03-27] MEDS: PHENAZOPYRIDINE HCL 200 MG TAB PO PRN (06:28)
[2023-03-27] MEDS: MoRPHine SULFATE 4 MG/ML 1 ML CARP\\VIAL IV PRN ×2 (06:29→21:10)
[2023-03-27 06:40] LABS: Basophils # (auto) 0.06 K/uL (0.00-0.20); Eosinophils # (auto) 0.35 K/uL (0.00-0.50); Eosinophils % (auto) 6.1 %; Hematocrit (blood only) 38.2 % (42.0-52.0); Immature Granulocytes # (auto) 0.01 K/uL (0.01-0.20); Immature Granulocytes % (auto) 0.2 %; Lymphocytes # (auto) 1.45 K/uL (1.20-3.40); Lymphocytes % (auto) 25.1 %; Mean Corpuscular Hemoglobin 27.8 pg (25.0-34.0); Mean Corpuscular Volume 81.8 fL (80.0-100.0); Mean Platelet Volume 9.5 fL (9.4-12.4); Monocytes % (auto) 6.9 %; Neutrophils % (auto) 60.7 %; Platelet Count 258 K/uL (130-400); RDW Standard Deviation 35.4 fL (36.4-46.3); Red Blood Count 4.67 M/uL (4.70-6.10); White Blood Count 5.77 K/ul (4.8-10.8)
[2023-03-27 07:06] LABS: Calcium 8.5 mg/dl (8.6-10.3); Creatinine Clr Calc Pharmacy 125.4 ml/min; Est GFR (African American) 132.1 ml/min; Est GFR (Non-African American) 113.9 ml/min; Magnesium 1.7 mg/dl (1.7-2.4)
[2023-03-27] MEDS: CETIRIZINE HCL 10 MG TABLET PO SCH (09:04)
[2023-03-27] MEDS: cefTRIAXone SODIUM 2,000 MG in DEXTROSE 5 % MINI-B 50 ML IV SCH (09:06)
[2023-03-27] MEDS: TAMSULOSIN HCL 0.4 MG CAP PO SCH (10:12)
--- NOTE | 2023-03-27 12:11 | Urology Progress Note ---
Date of Service March 27, 2023 Assessment & Plan (1) Hydronephrosis with renal and ureteral calculus obstruction: (2) Complicated UTI (urinary tract infection): Plan 42yo/M admitted with an obstructing right ureteral stone and concern for infection. - POD #1 s/p cystoscopy, right retrograde pyelogram, right ureteral stent placement with Dr. Donis. - Afebrile and hemodynamically stable. - Labs reviewed-WBC 5.77, hemoglobin 13, creatinine 0.75. - Urine culture pending, blood cultures preliminary no growth x 24 hours. - Okay to d/c from perspective when medically stable - Continue antibiotics and tailor as culture data becomes available. - Recommend d/c with course of PO antibiotics, Tamsulosin, prn Pyridium and prn pain medication for stent management. - Will arrange outpatient follow-up with our service for definitive stone treatment after infection has been treated. - Expected clinical course reviewed, all questions answered - Urology will sign-off. Please contact us with any further questions or concerns. Admission and Anticipated Discharge Date Admission Date: March 26, 2023 Subjective Patient examined at bedside this AM. Asleep on arrival, awakened to name. No acute distress. Reports some mild-moderate stent discomfort. Notes hematuria with voiding. Denies fevers, chills, nausea, vomiting. Review of Systems Constitutional: as per Subjective / HPI Genitourinary: + as per Subjective / HPI Physical Exam Constitutional: no acute distress Respiratory: no respiratory distress and no labored breathing Skin: No visible rashes or lesions to exposed skin areas Neurologic: awake Psychiatric: A+Ox3, euthymic affect Results & Data Vital Signs (Past 12 Hours) Vital Signs Temp Pulse Pulse Resp BP Pulse Ox O2 Del Method 03/27/23 11:19 36.7 C 80 14 115/75 97 Room Air 03/27/23 07:14 36.6 C 88 14 111/69 98 Room Air 03/27/23 02:20 36.6 C 74 18 112/71 96 Room Air PG Care Time/CCT Total # of Minutes Spent Total Time Spent with Patient: Total time spent is greater than 50% in coordination of care (as documented) at patient's floor/unit and/or counseling patient: Coding Level of Care Code 77384 SUB INP/OBS CARE 2/35MIN Diagnoses Hydronephrosis with renal and ureteral calculus obstruction N13.2 Complicated UTI (urinary tract infection) N39.0
--- NOTE | 2023-03-27 16:54 | Hospitalist Progress Note ---
Date of Service March 27, 2023 Assessment & Plan (1) Complicated UTI (urinary tract infection): Plan 42-year-old male with PMH of HCV status posttreatment, urolithiasis, testicular torsion, tobacco abuse presented to the ED with 1 day history of right flank pain associated with hematuria similar to his prior kidney stone attack. He is being managed for the following: Complicated UTI Obstructive uropathy Patient presents with right flank pain and burning micturition. Admitting CTAP with 4 mm stone in the proximal right ureter with mild hydroureteronephrosis No sepsis POA, await admitting urine culture. No CVA tenderness on exam. Continue with Rocephin 03/26. Urology evaluated, cystoscopy/stent placement 03/26. Continue with IV fluid and pain management, follow final urine culture. Abnormal scrotal ultrasound: No torsion but trace complex hydrocele and testicular microlithiasis noted. Urology on board, await recommendation. Will need urology follow-up as an outpatient. DVT prophylaxis: SCD, hematuria Full code Dispo: Likely tomorrow. Admission and Anticipated Discharge Date Admission Date: March 26, 2023 Subjective Patient was seen and examined at bedside. Patient was lying in bed, on room air, resting comfortably, not in any acute distress. Patient is a status post stent placement, reports stent discomfort and some pain while passing urine, like to go home tomorrow. Reports eating okay. Denies other ROS. Physical Exam Physical Exam: GENERAL: Alert and oriented x3. NAD, on RA. Appears ill. HEENT: No pallor, no icterus. Pupils equal, round and reactive to light. Oral mucosa moist. NECK: No JVD, no neck masses. HEART: S1 and S2 heard. Regular rate and rhythm. No murmur, no gallop. RESPIRATORY SYSTEM: Normal AP diameter. No accessory muscle use. No wheezing, no crackles. ABDOMEN: Soft, bowel sounds present, nontender, no distention. CENTRAL NERVOUS SYSTEM: No facial droop. Speech is clear. Obeys simple commands. Moves extremities. EXTREMITIES: No edema, no erythema seen. No CVA angle tenderness. Results & Data Results & Data Vital Signs (Past 12 Hours) Vital Signs Temp Pulse Resp BP Pulse Ox O2 Del Method 03/27/23 14:41 36.5 C 78 14 127/78 98 Room Air 03/27/23 11:19 36.7 C 80 14 115/75 97 Room Air 03/27/23 07:14 36.6 C 88 14 111/69 98 Room Air
[2023-03-28 06:48] LABS: Hematocrit (blood only) 40.5 % (42.0-52.0); Hemoglobin 13.6 g/dl (14.0-18.0); Mean Corpuscular Hemoglobin 27.6 pg (25.0-34.0); Mean Corpuscular Hgb Conc 33.6 g/dL (32.0-36.0); Mean Corpuscular Volume 82.3 fL (80.0-100.0); Mean Platelet Volume 9.7 fL (9.4-12.4); Platelet Count 251 K/uL (130-400); RDW Coefficient of Variation 11.8 % (11.5-14.5); RDW Standard Deviation 35.4 fL (36.4-46.3); Red Blood Count 4.92 M/uL (4.70-6.10); White Blood Count 5.54 K/ul (4.8-10.8)
[2023-03-28 06:51] LABS: BUN Creatinine Ratio 12.1 (10-20); Calcium 8.8 mg/dl (8.6-10.3); Creatinine Clr Calc Pharmacy 142.5 ml/min; Est GFR (African American) 139.2 ml/min; Est GFR (Non-African American) 120.1 ml/min; Magnesium 1.8 mg/dl (1.7-2.4); Potassium 3.6 mmol/L (3.5-5.1)
[2023-03-28] MEDS: oxyCODONE HCL IR 5 MG TAB (IMMEDIATE RELEASE) PO PRN ×2 (09:08→14:54)
[2023-03-28] MEDS: cefTRIAXone SODIUM 2,000 MG in DEXTROSE 5 % MINI-B 50 ML IV SCH (09:08)
[2023-03-28] MEDS: CETIRIZINE HCL 10 MG TABLET PO SCH (09:10)
[2023-03-28] MEDS: TAMSULOSIN HCL 0.4 MG CAP PO SCH (09:10)
--- NOTE | 2023-03-28 13:06 | Discharge Summary ---
Date of Service March 28, 2023 Admission HPI Per Admitting Provider History obtained from patient and records. Medical history significant for HCV sp treatment, urolithiasis, past history of testicular torsion, past tobacco abuse. 1 day history of achy right flank pain associated with hematuria symptoms similar to kidney stone attack. Intermittent scrotal pain unrelated to flank pain since episode of possible testicular torsion March 2022 which led to [facility] evaluation. Patient canceled cystoscopy and bilateral orchiopexy scheduled for August 2022. No fever, no chills, no chest pain, no SOB. IV cefepime administered at the ER. Medical History as above Surgical History : None Family History : DM Personal/Social history : Past tobacco abuse, occasional EtOH intake, construction work Admission Exam Per Admitting Provider GENERAL: Slightly uncomfortable, looks older than stated age, no respiratory distress SKIN: Normal color, warm HEENT: Alanreed palpebral conjunctivae, no ptosis, dry buccal mucosa NECK : Supple, no tenderness CHEST : CTA, no tenderness HEART : RRR, no obvious murmurs ABDOMEN: Some distention, nontender BACK : Right flank tenderness EXTREMITIES : No LE swelling/tenderness, no other conspicuous deformities noted NEUROLOGIC : Coherent, no facial asymmetry, no other gross focality Principal Diagnosis Complicated UTI Obstructive uropathy Discharge Exam GENERAL: Alert and oriented x3. NAD, on RA. Appears ill. HEENT: No pallor, no icterus. Pupils equal, round and reactive to light. Oral mucosa moist. NECK: No JVD, no neck masses. HEART: S1 and S2 heard. Regular rate and rhythm. No murmur, no gallop. RESPIRATORY SYSTEM: Normal AP diameter. No accessory muscle use. No wheezing, no crackles. ABDOMEN: Soft, bowel sounds present, nontender, no distention. CENTRAL NERVOUS SYSTEM: No facial droop. Speech is clear. Obeys simple commands. Moves extremities. EXTREMITIES: No edema, no erythema seen. No CVA angle tenderness. Discharge Data Allergies Allergy/AdvReac Type Severity Reaction Status Date / Time ibuprofen Allergy Intermediate CONGESTION, Verified 03/26/23 01:04 EARS "PLUG" UP Consultations 03/26/23 04:09 ED Decision to Admit Stat 03/26/23 06:31 Consult Urology Routine Procedures Performed Operation Date: 03/26/23 09:15 Actual Procedures p Cystoscopy, Right Retrograde Pyelogram, Right Ureteral Stent Placement(Right) - Terrance Donis MD Ordered Studies 03/25/23 23:55 CT abd pelvis wo con Stat 03/26/23 [place] retrograde includes kub Routine 03/26/23 04:48 US scrotum/testicle Stat Hospital Course (1) Complicated UTI (urinary tract infection): Plan 42-year-old male with PMH of HCV status posttreatment, urolithiasis, testicular torsion, tobacco abuse presented to the ED with 1 day history of right flank pain associated with hematuria similar to his prior kidney stone attack. He was managed for the following: Complicated UTI Obstructive uropathy Patient presents with right flank pain and burning micturition. Admitting CTAP with 4 mm stone in the proximal right ureter with mild hydroureteronephrosis No sepsis POA, admitting urine culture reviewed - no growth. No CVA tenderness on exam. Continue with Rocephin 03/26 to PO on dc to complete the course. Urology evaluated, cystoscopy/stent placement 03/26. Patient to follow-up with urology on discharge. Patient feels better today, pain better controlled today, is hemodynamically sta ble and is being discharged. Abnormal scrotal ultrasound: No torsion but trace complex hydrocele and testicular microlithiasis noted. Patient to follow-up with urology on . DVT prophylaxis: SCD, hematuria Full code Dispo: Likely tomorrow. Patient is being discharged to home with following instruction at the point of discharge: Follow-up with your primary care physician within a week time and likely you will need labs CBC/CMP/magnesium/phosphorus. You are being discharged on antibiotic, complete the course. Follow-up with your urology in 1 to 2 weeks upon discharge. You are being discharged on few days worth of pain medication, if your pain is ongoing or worsening, you will need further evaluation by urology or PCP for further pain management/prescription. Take your medications as prescribed. Please make sure that you are able to get your medications today by calling your pharmacy before you leave the hospital so that your treatment continuity is not broken. Formerly [facility] Attestation I certify that this patient is under my care and that I, or a physicians digital assistant working with me, had a face to-face encounter that meets the [facility] [id number] encounter requirements with this patient. The encounter with the patient was in whole, or in part, for the following medical condition, which is the primary reason for home health care (list medical condition): I certify that, based on my findings, the following services are medically necessary home health services: My clinical findings support the need for the above services because: Further, I certify that my clinical findings support that this patient is homebound (i.e. absences from home require considerable and taxing effort and are for medical reasons or mandaen services or infrequently or of short duration when for other reasons) because: Certification for Home Health Services: Based on the above findings, I certify that this patient is confined to the home and needs intermittent jail care, physical therapy and/or speech therapy or continues to need occupational therapy. The patient is under my care, and I have initiated the establishment of the plan of care. This patient will be followed by a physician who will periodically review the plan of care. Total Time Total Time Spent Total Time Spent (In Minutes): 45 Discharge Plan Discharge Items Patient Disposition: Home - Self-Care Reason For Visit: OBS UROPATHY Discharge Diagnosis: Complicated UTI Obstructive uropathy Activity: Resume your previous activity Non-emergency contact: Primary Care Provider Call non-emergency contact if: you have any medication questions and your symptoms worsen Follow-up/Referrals: [facility] [Provider Group] ([facility] [address], [place] [address] *The office will call you with an appointment. If you do not receive a call, ple ase call the office for the appointment.*) Maya Tang CRNP [Nurse Practitioner] - 04/02/23 10:00 am Terrance Donis MD [Physician] - (The Urology office will contact you for a follow up appointment.) Diet: Regular Addtl Attending Provider Instructions: Follow-up with your primary care physician within a week time and likely you will need labs CBC/CMP/magnesium/phosphorus. You are being discharged on antibiotic, complete the course. Follow-up with your urology in 1 to 2 weeks upon discharge. You are being discharged on few days worth of pain medication, if your pain is ongoing or worsening, you will need further evaluation by urology or PCP for further pain management/prescription. Take your medications as prescribed. Please make sure that you are able to get your medications today by calling your pharmacy before you leave the hospital so that your treatment continuity is not broken. Addtl Assistant Pastry Chef Provider Instructions: Please call the urology office at [phone] with any questions, concerns or need to reschedule appointments for any reason. We are happy to assist you. While you have a ureteral stent in place: Some discomfort is normal. Certain movements may trigger pain or a feeling that you need to urinate. You may also feel mild soreness or pressure before or during urination. . Your urine may be slightly pink or red. This is due to bleeding caused by minor irritation from the stent. This may happen on and off while you have the stent, it is not harmful and is to be expected. Medication to help minimize discomfort or bladder spasms, or to prevent infection may be prescribed. Take this as directed. Drink plenty of fluids to help flush out your urinary tract. When to call [facility] Urology at [phone]: Your urine contains heavy blood clots or you are unable to urinate You are constantly leaking urine Fever of 101F or higher, chills, nausea, or vomiting Your pain is not relieved with medication The end of the stent comes out of your urethra Pending Studies at Discharge: Yes Stand-Alone Forms: My [facility] [employer], Smoking Cessation Medications and DC Order Prescriptions: New tamsulosin 0.4 mg Capsule 0.4 mg PO QAM Qty: 30 0RF acetaminophen 325 mg Tablet 650 mg PO QID PRN (Reason: pain) Qty: 30 0RF oxycodone 5 mg Tablet 10 mg PO TID PRN (Reason: severe pain) Qty: 15 0RF phenazopyridine [Pyridium] 200 mg Tablet 200 mg PO TID PRN (Reason: pain) Qty: 10 0RF cefdinir 300 mg capsule 300 mg PO BID 5 Days Qty: 10 0RF Continued cetirizine-pseudoephedrine [Zyrtec-D] 5-120 mg Tablet Extended Release 12 Hr 1 tab PO DAILY Discharge Orders: Discharge Order (Routine); Ordered 03/28/23 Ordered By: Sami Sherman Admission Data Admit Date/Time: 03/26/23 04:50 Attending Provider: Sami Sherman Admit Provider: Lobo Lopez Primary Care Provider: PCP,NO Other Providers: Lobo Lopez
== END 2023-03-28 17:28 | disposition home or self-care (01) | DRG 690 ==
LOC: ED 23:22 → EDINP 03-26 04:50 → 3E 03-26 06:31